=== PATIENT | male | born 1990 | race Two or more races ===

== ENCOUNTER 2017-03-12 01:57 | Emergency (ER) | payer SELFPAY ==
[~2017-03-12] VITALS: Ht 162.6 cm; Wt 65.8 kg
== END 2017-03-12 03:58 | disposition short-term general hospital (02) ==
LOC: ER 01:57
DX: H57.12 Ocular pain, left eye (principal); F10.129 Alcohol abuse with intoxication, unspecified; F17.210 Nicotine dependence, cigarettes, uncomplicated; Y04.2XXA Assault by strike against or bumped into by another person, initial encounter
CPT/HCPCS: G0477; G0480